=== PATIENT | male | born 1950 | race Caucasian/White ===

== ENCOUNTER 2018-10-17 02:14 | Inpatient (IN) | payer OTHER, BC ==
[~2018-10-17] VITALS: Ht 195.6 cm; Wt 113.4 kg
[2018-10-17] VITALS (7 sets, daily range): BP systolic 117–174; BP diastolic 60–84; Ht 195.6 cm; Wt 113.4 kg
[~2018-10-17 02:14] MED LIST: LOSARTAN POTASS1 TA6 PO; NOR10T PO; PROVENTIL0.09 MG/A1 INH
[2018-10-17 03:09] LABS: BASOPHIL % 1.1 % (0-2); PLATELET COUNT 160 x10^3mcL (130-400); RED CELL DISTRIBUTION WIDTH 12.4 % (11.5-14.5)
[2018-10-17 03:12] LABS: CALCIUM 8.8 mg/dL (8.5-10.1); CARBON DIOXIDE 24.7 mmol/L (21-32); CHLORIDE SERUM 100 mmol/L (98-107); CREATININE SERUM 1.2 mg/dL (0.7-1.3); GFR1 > 60 mL/min; GLUCOSE SERUM 124 mg/dL (74-106); POTASSIUM SERUM 3.5 mmol/L (3.5-5.1); SODIUM SERUM 137 mmol/L (136-145)
[2018-10-17 03:13] LABS: microscopic required? YES; urine erythrocyte 3+ (NEGATIVE)
[2018-10-17 03:23] LABS: ALBUMIN 3.9 g/dL (3.4-5.0); ALKALINE PHOSPHATASE 102 U/L (46-116); ALT/SGPT 61 U/L (16-63); AST/SGOT 33 U/L (15-37); BILIRUBIN TOTAL 1.07 mg/dL (0.20-1.00); C REACTIVE PROTEIN 3.1 mg/dL (<=0.9); TOTAL PROTEIN, SERUM 7.4 g/dL (6.4-8.2)
[2018-10-17 03:28] LABS: CK-MB 0.7 ng/mL (0-3.6); FREE T4 1.17 ng/dL (0.76-1.46); FREE THYROXINE INDEX 3.2 ug/dL (1.4-4.5); T4(THYROXINE) 9.7 ug/dL (4.7-13.3)
[2018-10-17 03:43] LABS: T3 TOTAL 1.24 ng/mL
[2018-10-17 04:40] LABS: ERYTHROCYTE SED RATE 9 mm/hr (0-20)
[2018-10-17 04:45] LABS: CHOLESTEROL/HDL RATIO 3.4; MAGNESIUM 1.5 mg/dL (1.8-2.4); PHOSPHOROUS 2.4 mg/dL (2.5-4.9)
[2018-10-17] MEDS ORDERED: PROTONIX40 MG PO (16:45)
[2018-10-18 06:10] VITALS: BP 126/60
[2018-10-18 06:43] LABS: CALCIUM 7.9 mg/dL (8.5-10.1); CARBON DIOXIDE 25.7 mmol/L (21-32); CHLORIDE SERUM 104 mmol/L (98-107); CREATININE SERUM 1.2 mg/dL (0.7-1.3); GFR1 > 60 mL/min; GLUCOSE SERUM 111 mg/dL (74-106); MAGNESIUM 1.5 mg/dL (1.8-2.4); PHOSPHOROUS 2.3 mg/dL (2.5-4.9); POTASSIUM SERUM 3.4 mmol/L (3.5-5.1); SODIUM SERUM 140 mmol/L (136-145)
[2018-10-18 07:31] LABS: RED CELL DISTRIBUTION WIDTH 13.4 % (11.5-14.5)
[2018-10-18 07:32] LABS: PLATELET COUNT 137 x10^3mcL (130-400)
[2018-10-18 09:14] VITALS: BP 136/71
[2018-10-18 09:17] VITALS: BP 157/81
[2018-10-18 12:01] LABS: BAND NEUTROPHIL 1 % (0-10); BASOPHIL 0 % (0-2); MONOCYTE 4 % (0-7); SEGMENTED NEUTROPHILS 94 % (37-75)
[2018-10-18 12:03] LABS: PLATELET MORPHOLOGY PLATELETS DECREASED; rbc morphology (normal/abnorm) ABNORMAL (NORMAL)
[2018-10-18 12:50] VITALS: BP 139/60
[2018-10-18 17:06] VITALS: BP 132/90
[2018-10-18 20:56] VITALS: BP 146/72
[2018-10-19 05:27] VITALS: BP 144/81
[2018-10-19 06:46] LABS: CALCIUM 8.2 mg/dL (8.5-10.1); CARBON DIOXIDE 28.4 mmol/L (21-32); CHLORIDE SERUM 102 mmol/L (98-107); GFR1 > 60 mL/min; GLUCOSE SERUM 118 mg/dL (74-106); MAGNESIUM 1.7 mg/dL (1.8-2.4); PHOSPHOROUS 2.2 mg/dL (2.5-4.9); POTASSIUM SERUM 3.8 mmol/L (3.5-5.1); SODIUM SERUM 138 mmol/L (136-145)
[2018-10-19 06:55] LABS: PLATELET COUNT 137 x10^3mcL (130-400); RED CELL DISTRIBUTION WIDTH 13.1 % (11.5-14.5)
[2018-10-19 06:56] LABS: BASOPHIL % 0 % (0-2)
[2018-10-19 07:58] VITALS: BP 147/69
[2018-10-19 12:29] VITALS: BP 147/73
[2018-10-19 16:36] VITALS: BP 132/81
[2018-10-19 20:35] VITALS: BP 140/79
[2018-10-20 05:59] VITALS: BP 138/74; BP 156/81
[2018-10-20 06:52] LABS: CALCIUM 8.7 mg/dL (8.5-10.1); CARBON DIOXIDE 23.6 mmol/L (21-32); CHLORIDE SERUM 104 mmol/L (98-107); CREATININE SERUM 0.9 mg/dL (0.7-1.3); GFR1 > 60 mL/min; GLUCOSE SERUM 104 mg/dL (74-106); POTASSIUM SERUM 3.3 mmol/L (3.5-5.1); SODIUM SERUM 140 mmol/L (136-145)
[2018-10-20 07:15] VITALS: BP 153/75
[2018-10-20 07:18] LABS: BASOPHIL % 0.2 % (0-2); PLATELET COUNT 154 x10^3mcL (130-400); RED CELL DISTRIBUTION WIDTH 13.3 % (11.5-14.5)
[2018-10-20 09:58] VITALS: BP 153/75
[2018-10-20] MEDS ORDERED: TETRACYCLINE250 MG PO (10:41)
[2018-10-20 13:36] VITALS: BP 146/76
== END 2018-10-20 14:01 | disposition home or self-care (01) | DRG 872 ==
LOC: ED 02:14 → DU 04:13
PROVIDERS: Specialist; ADMIT Family Medicine
DX: A41.51 Sepsis due to Escherichia coli [E. coli] (principal); N39.0 Urinary tract infection, site not specified; I10 Essential (primary) hypertension; E83.39 Other disorders of phosphorus metabolism; E83.42 Hypomagnesemia; Z68.28 Body mass index [BMI] 28.0-28.9, adult
CPT/HCPCS: 36600; 84439; 87804; J0696; J3475; J7030; J7040; Q0092

== ENCOUNTER 2019-08-21 21:27 | Inpatient (IN) | payer OTHER, BC ==
[~2019-08-21] VITALS: Ht 200.7 cm; Wt 107.0 kg
[~2019-08-21 21:27] MED LIST changes: +PROTONIX40 MG PO; +TETRACYCLINE250 MG PO
[2019-08-21 21:34] VITALS: Ht 200.7 cm; Wt 107.0 kg
[2019-08-21 21:51] LABS: BASOPHIL % 0.1 % (0-2); PLATELET COUNT 201 x10^3mcL (130-400); RED CELL DISTRIBUTION WIDTH 13.9 % (11.5-14.5)
[2019-08-21 21:59] LABS: CALCIUM 9.2 mg/dL (8.5-10.1); CHLORIDE SERUM 102 mmol/L (98-107); CREATININE SERUM 1.4 mg/dL (0.7-1.3); GFR1 53 mL/min; GLUCOSE SERUM 112 mg/dL (74-106); POTASSIUM SERUM 3.5 mmol/L (3.5-5.1); SODIUM SERUM 138 mmol/L (136-145)
[2019-08-21 22:15] LABS: ALKALINE PHOSPHATASE 83 U/L (46-116); ALT/SGPT 74 U/L (16-63); AST/SGOT 33 U/L (15-37); BILIRUBIN TOTAL 1.73 mg/dL (0.20-1.00); TOTAL PROTEIN, SERUM 7.1 g/dL (6.4-8.2)
[2019-08-21 22:59] LABS: UA SPECIFIC GRAVITY 1.025 (1.005-1.035); microscopic required? YES; urine erythrocyte NEGATIVE (NEGATIVE)
[2019-08-21] MEDS ORDERED: CENTRUM MEN'S1 EACH PO (23:36)
[2019-08-21] MEDS ORDERED: ZINC50 M4 PO (23:37)
[2019-08-22 01:24] VITALS: BP 130/66
[2019-08-22 02:22] LABS: T3 TOTAL 1.37 ng/mL
[2019-08-22 02:57] LABS: FREE T4 1.28 ng/dL (0.76-1.46); FREE THYROXINE INDEX 3.7 ug/dL (1.4-4.5); T4(THYROXINE) 9.6 ug/dL (4.7-13.3)
[2019-08-22 06:08] VITALS: BP 148/74
[2019-08-22 06:09] LABS: AMPHETAMINE QUAL UR NONE DETECTED (See below)
[2019-08-22 08:17] VITALS: BP 147/78
[2019-08-22 09:16] LABS: BASOPHIL % 0.1 % (0-2); PLATELET COUNT 161 x10^3mcL (130-400); RED CELL DISTRIBUTION WIDTH 14.2 % (11.5-14.5)
[2019-08-22 09:26] LABS: CALCIUM 8.6 mg/dL (8.5-10.1); CARBON DIOXIDE 32.1 mmol/L (21-32); CREATININE SERUM 1.3 mg/dL (0.7-1.3); POTASSIUM SERUM 4.2 mmol/L (3.5-5.1)
[2019-08-22 13:28] VITALS: BP 141/66
[2019-08-22 16:22] VITALS: BP 132/71
[2019-08-22 20:50] VITALS: BP 140/71
[2019-08-23 05:41] VITALS: BP 137/70
[2019-08-23 07:07] LABS: BASOPHIL % 0.3 % (0-2); PLATELET COUNT 136 x10^3mcL (130-400); RED CELL DISTRIBUTION WIDTH 13.8 % (11.5-14.5)
[2019-08-23 07:23] LABS: CALCIUM 8.9 mg/dL (8.5-10.1); CHLORIDE SERUM 104 mmol/L (98-107); GFR1 > 60 mL/min; GLUCOSE SERUM 95 mg/dL (74-106); MAGNESIUM 2.1 mg/dL (1.8-2.4); PHOSPHOROUS 2.2 mg/dL (2.5-4.9); POTASSIUM SERUM 3.6 mmol/L (3.5-5.1); SODIUM SERUM 140 mmol/L (136-145)
[2019-08-23 07:31] LABS: CARBON DIOXIDE 28.2 mmol/L (21-32)
[2019-08-23 08:08] VITALS: BP 142/79
[2019-08-23 12:11] VITALS: BP 135/78
[2019-08-23 16:03] VITALS: BP 123/74
[2019-08-23 20:51] VITALS: BP 137/69
[2019-08-24 05:42] VITALS: BP 140/81
[2019-08-24 06:48] LABS: BASOPHIL % 0.2 % (0-2); PLATELET COUNT 143 x10^3mcL (130-400)
[2019-08-24 08:54] VITALS: BP 146/84
[2019-08-24] MEDS ORDERED: HYD25 PO (10:37)
[2019-08-24] MEDS ORDERED: BACTRIM DS1 TAB PO (10:37)
[2019-08-24] MEDS ORDERED: COZ50 PO (10:37)
[2019-08-24 12:07] VITALS: BP 137/78; BP 146/84
[2019-08-24 12:40] VITALS: BP 137/78
== END 2019-08-24 14:25 | disposition home or self-care (01) | DRG 871 ==
LOC: ED 21:27 → DU 23:38 → MU 08-23 17:29
PROVIDERS: Emergency Medicine; ADMIT Family Medicine
DX: A41.9 Sepsis, unspecified organism (principal); N17.0 Acute kidney failure with tubular necrosis; N39.0 Urinary tract infection, site not specified; R74.0 Nonspecific elevation of levels of transaminase and lactic acid dehydrogenase [LDH]; R65.20 Severe sepsis without septic shock; I10 Essential (primary) hypertension; E80.6 Other disorders of bilirubin metabolism; Z68.26 Body mass index [BMI] 26.0-26.9, adult; Z93.3 Colostomy status; Z79.899 Other long term (current) drug therapy
CPT/HCPCS: 83880; 84439; 87804; G0378; J0696; J3490; J7030; J7060; Q0092